=== PATIENT | male | born 1960 | race Caucasian/White ===

== ENCOUNTER 2020-02-03 21:36 | Outpatient (REF) | payer MEDICAID, SELFPAY ==
[2020-02-03 18:43] LABS: Crystals (BF) No Crystals seen
== END 2020-02-03 21:56 ==
LOC: NCHCN 21:36
PROVIDERS: Visit Provider Physician Assistant Medical
DX: Z13.89 Encounter for screening for other disorder (principal)
CPT/HCPCS: 87070; 87205; 89060

== ENCOUNTER 2020-02-08 05:47 | Outpatient (REF) | payer MEDICAID, SELFPAY ==
[2020-02-14 17:29] LABS: Lyme Ab w Rflx to Lyme Confirm Positive (Negative)
[2020-02-14 17:31] LABS: IgG Immunoblot Positive (Negative)
[2020-02-14 17:32] LABS: IgG Band(s) See Comments; IgM Immunoblot Positive (Negative)
[2020-02-14 17:33] LABS: IgM Band(s) See Comments
[2020-02-14 17:36] LABS: Immunoblot Interpretation See Comments
== END 2020-02-08 06:07 ==
LOC: NCHCN 05:47
PROVIDERS: PCP Physician Assistant; Visit Provider Physician Assistant
DX: M25.461 Effusion, right knee (principal)
CPT/HCPCS: 86617; 86618

== ENCOUNTER 2020-04-10 16:50 | Outpatient (REF) | payer MEDICAID, SELFPAY ==
[2020-04-10 14:18] LABS: Anion Gap 3.3 mmol/L (3-11); BUN 12 mg/dL (7-18); CO2 30.7 mmol/L (21.0-32.0); CREATININE 1.19 mg/dL (0.70-1.30); Calcium 9.5 mg/dL (8.5-10.1); Calculated LDL 141 mg/dL (<100); Chloride 104 mmol/L (98-107); Cholesterol 219 mg/dL (<200); Glucose 70 mg/dL (74-106); HDL Cholesterol 47 mg/dL (40-60); Potassium 4.7 mmol/L (3.5-5.1); Sodium 138 mmol/L (136-145); Triglyceride 155 mg/dL (<150)
== END 2020-04-10 17:10 ==
LOC: NCHCN 16:50
PROVIDERS: PCP Physician Assistant; Visit Provider Physician Assistant
DX: Z13.220 Encounter for screening for lipoid disorders (principal); Z13.228 Encounter for screening for other metabolic disorders; Z12.5 Encounter for screening for malignant neoplasm of prostate; Z00.00 Encounter for general adult medical examination without abnormal findings
CPT/HCPCS: 80048; 80061; 84153

== ENCOUNTER 2020-05-08 02:04 | Outpatient (CLI) | payer MEDICAID, SELFPAY ==
--- NOTE | 2020-05-08 11:22 | DI.RAD_ITS ---
EXAM: XR KNEE RT 3V AP,LAT,TONY CLINICAL HISTORY: RT KNEE PAIN, M25.561. TECHNIQUE: 2D digital imaging was performed. COMPARISON: No exams were available for comparison FINDINGS: There is no evidence of fracture although there is a subtle suggestion of a small joint effusion. No obvious degenerative changes nor significant osseous lesions. Incidentally noted is calcification p osteriorly in what appears to be the popliteal artery as well as some calcification noted in 1 of the rib calf runoff arteries. This indicates atherosclerotic involvement. Sign rib IMPRESSION: DATA REPOSITORY: RADIATION DOSE DELIVERED:
== END 2020-05-08 02:05 ==
LOC: DI 02:04
PROVIDERS: PCP Physician Assistant; Visit Provider Physician Assistant
DX: M25.561 Pain in right knee (principal); M25.461 Effusion, right knee
CPT/HCPCS: 73562

== ENCOUNTER 2020-07-12 02:56 | Outpatient (CLI) | payer MEDICAID, SELFPAY ==
--- NOTE | 2020-07-12 | DI.MRI_ITS ---
EXAM: MR LOWER JOINT RT WO CLINICAL HISTORY: RT KNEE JOINT PAIN, M25.561 TECHNIQUE: Multiplanar multisequence MRI of the knee was performed. COMPARISON: CR XR KNEE RT 3V AP,LAT,TONY from 05/08/2020 FINDINGS: EFFUSION: There is a prominent joint effusion. There is also a large Garcia cyst in the popliteal fos sa which measures 10 centimeter craniocaudal length and which is possibly ruptured given that there d oes appear to be some fluid in the subcutaneous tissues caudal to the Garcia cyst. AP measurement of the Garcia cyst is 1.6 cm and is approximately 2.6 cm wide. Also some debris evident within the Garcia cyst. MARROW:There is no evidence of fracture. There is focal subarticular edema in the lateral tibial navid teau which show is immediately subjacent to a small full-thickness abnormality in the overlying Highl and cartilage and this is consistent with an element of osteochondral defect. There is very mild ove rlying intraosseous edema in the lateral femoral condyle. No abnormal intraosseous signal in the opp osite-medial nor in the fibular head neck. PATELLOFEMORAL COMPARTMENT: The quadriceps tendon is intact. The patellar ligament is intact. There is an area of mild concave thinning of the retropatellar cartilage over the lateral facet, and there is also some focal signal abnormality in the opposing Downey cartilage over the anterior aspe ct of the lateral femoral condyle.There is no intraosseous signal to suggest recent patellar dislocat ion. There are no patellar retinacular tears. CRUCIATE LIGAMENTS: The anterior cruciate ligament is intact.The posterior cruciate ligament is intac t. MEDIAL COMPARTMENT/MEDIAL MENISCUS: There is a tear in the posterior horn of the medial meniscus. Th ere is an oblique tear seen on the sagittal images.Violates inferior articular surface. Also horizon symone signal abnormality extending to the level of the root but without true tear of the root. The ant erior horn does not appear torn. Mild extrusion.. There are no chondral defects, osteochondral defects, subarticular marrow edema, nor osteophytes evid ent. MEDIAL COLLATERAL LIGAMENT: Intact LATERAL COMPARTMENT/LATERAL MENISCUS: There is no evidence of lateral meniscal tear.There is a small chondral defect in the posterior aspect of the lateral tibial plateau which measures 3 millimeters wi de by 3 millimeters AP and which is accompanied by subjacent stir bright bone edema and what appears to be a small osteochondral defect at this level.There is no obvious loose intra-articular body no ot her degenerative changes nor osteophytes in the lateral compartment. ILIOTIBIAL BAND: Intact LATERAL COLLATERAL LIGAMENT COMPLEX: The fibular collateral ligament is intact. The biceps femoris t endon is intact.Mild tenosynovitis of the popliteus tendon sheath noted. However, the tendon is not torn. IMPRESSION: 1. There is tear of the posterior horn of the medial meniscus, as described above. No bucket-handle configuration. There are no tears of the lateral meniscus. 2. There is a deep focal (3 millimeters) chondral defect in the posterior aspect of the lateral tibia l plateau with focal subjacent marrow edema. 3. There are opposing chondral defects in the lateral aspect of the patellofemoral compartment. Ther e opposing foci of signal abnormality in the cartilage over the lateral facet of the patella and medhat cent-opposing cartilage over the anterior aspect of the lateral femoral condyle. 4. There is a large joint effusion and there is also a large Garcia cyst measuring 10 cm length and co ntaining debris. 5. The cruciate and collateral ligaments are intact. There is mild fluid within the popliteus tendon sheath component of the LCL complex but no high-grade tear of this structure DATA REPOSITORY:
== END 2020-07-12 03:16 ==
PROVIDERS: PCP Physician Assistant; Visit Provider Physician Assistant
DX: M25.561 Pain in right knee (principal); S83.241A Other tear of medial meniscus, current injury, right knee, initial encounter; M25.461 Effusion, right knee; M71.21 Synovial cyst of popliteal space [Baker], right knee
CPT/HCPCS: 73721

== ENCOUNTER → 2023-06-17 03:35 | Outpatient (CLI) | payer MEDICARE, SELFPAY ==
--- NOTE | 2023-06-17 14:02 | DI.US_ITS ---
Exam(s) US CAROTID EXAM: US CAROTID CLINICAL HISTORY: CAROLTID BRUIT,R09.89. TECHNIQUE: Ultrasound carotids performed using grayscale, color-flow, and spectral Doppler imaging. COMPARISON: No exams were available for comparison FINDINGS: CAROTID ARTERIES: On the right side there is significant calcified and noncalcified plaque at the level the carotid bul b and proximal right ICA with peak systolic velocity in the proximal right ICA measuring 133 cm/sec, consistent with moderate stenosis (50-69 percent). On the left side there is similar appearing calcified and noncalcified plaque, also with elevated brandy ocities, most prominent in the distal left ICA with peak systolic velocity 141 cm/sec, also consisten t with moderate stenosis (50-69 percent). VERTEBRAL ARTERIES: Antegrade flow is demonstrated in both vertebral arteries in the neck. Measurements: R Bulb: 102 cm/s PS / 19.3 cm/s ED R CCA: 100.7 cm/s PS / 15.4 cm/s ED R ECA: 107.5 cm/s PS / 10.8 cm/s ED R ICA Prox: 133.1 cm/s PS / 19.9 cm/s ED R ICA Mid: 90.5 cm/s PS / 19.8 cm/s ED R ICA Distal: 106.9 cm/s PS /28.8 cm/s ED R Vert: 69.8 cm/s PS / 7.5 cm/s ED R SVR: 1.3 R DVR: 1.3 L Bulb: 154 cm/s PS / 0 cm/s ED L CCA: 91.7 cm/s PS / 19.6 cm/s ED L ECA: 201.5 cm/s PS / 12.3 cm/s ED L ICA Prox: 100.2 cm/s PS / 27.2 cm/s ED L ICA Mid: 109.3 cm/s PS / 29 cm/s ED L ICA Distal: 141.3 cm/s PS / 37.9 cm/s ED L Vert: 53.7 cm/s PS / 17.5 cm/s ED L SVR: 1.45 L DVR: 0.75 IMPRESSION: Significant plaque at the level the carotid bulbs and proximal internal carotid arteries bilaterally both sides of the neck consistent with moderate stenosis of approximately 50-69 percent on both sides . Antegrade flow is demonstrated in both vertebral arteries in the neck. Criteria for Carotid Stenosis: Normal: ICA PSV <125 cm/s no plaque or intimal thickening is visible. <50% stenosis: ICA PSV <125 cm/s and plaque or intimal thickening is visible. 50-69% stenosis: ICA PSV is 125-250 cm/s and plaque is visible. >70% stenosis to near occlusion: ICA PSV >250 cm/s with visible plaque and luminal narrowing. DATA REPOSITORY:
== END ==
PROVIDERS: PCP Physician Assistant; Visit Provider Physician Assistant
DX: R09.89 Other specified symptoms and signs involving the circulatory and respiratory systems (principal); I65.23 Occlusion and stenosis of bilateral carotid arteries
CPT/HCPCS: 93880

== ENCOUNTER 2023-06-24 14:35 | Outpatient (REF) | payer MEDICARE, SELFPAY | END 2023-06-24 14:36 | disposition home or self-care (01) | LOC: NCHCN 14:35 | PROVIDERS: PCP Physician Assistant; Visit Provider Physician Assistant | DX: R10.32 Left lower quadrant pain (principal) | CPT/HCPCS: 87086 ==

== ENCOUNTER → 2023-06-30 04:40 | Outpatient (CLI) | payer MEDICARE, SELFPAY ==
--- NOTE | 2023-06-30 | DI.MRI_ITS ---
Exam(s) MR BRAIN WO EXAM: MR BRAIN WO CLINICAL HISTORY: HEADACHE, R51.9 TECHNIQUE: Multiplanar multisequence MRI of the brain was performed. COMPARISON: No exams were available for comparison FINDINGS: VENTRICLES AND EXTRA AXIAL SPACES: Normal in size and morphology for the patient's age. MIDLINE SHIFT: None. CEREBRAL PARENCHYMA: No focus of restricted diffusion to suggest acute infarct. No space-occupying le nilesh identified. HEMORRHAGE: None. BRAINSTEM/CEREBELLUM: Normal. CALVARIUM: Normal. VISUALIZED PARANASAL SINUSES/MASTOIDS:There is opacification of some of the left mastoid air cells. The remaining visualized paranasal sinuses are clear. [facility]: Normal flow void. PITUITARY GLAND: Unremarkable. OTHER FINDINGS: None. IMPRESSION: 1. Unremarkable MRI of the brain. 2. Mild left mastoiditis. DATA REPOSITORY:
== END ==
PROVIDERS: PCP Physician Assistant; Visit Provider Physician Assistant
DX: R51.9 Headache, unspecified (principal); H70.92 Unspecified mastoiditis, left ear
CPT/HCPCS: 70551

== ENCOUNTER → 2023-07-04 01:20 | Outpatient (CLI) | payer MEDICARE, SELFPAY ==
--- NOTE | 2023-07-04 | DI.CTLCSR_ITS ---
Exam(s) CT CHEST LUNG CANCER SCREEN EXAM: CT CHEST LUNG CANCER SCREEN CLINICAL HISTORY: NICOTINE DEPENDENCE, F17.210, SCREENING FOR LUNG CA, CURRENT SMOKER TECHNIQUE: Imaging Protocol: Axial computed tomography images with coronal and sagittal reformatted images were created and reviewed. Low dose screening protocol. COMPARISON: No exams were available for comparison FINDINGS: Tracheobronchial tree: No bronchiectasis or mucus plugging. Mediastinum and Dalia: No dominant adenopathy or fluid collection. Pulmonary parenchyma: No consolidation or dominant measurable mass. Centrilobular and paraseptal emph ysematous changes, greater at the lobes. Lung Nodules: Calcified granulomata. Pleura: No effusion. No pneumothorax. Heart: The heart is not dilated. Moderate to severe coronary artery calcifications are seen. Aorta: Thoracic aorta non-dilated. Mild atherosclerotic changes. Upper abdomen: Unremarkable. Bones: Unremarkable for age. Soft Tissues: Unremarkable. IMPRESSION: No suspicious pulmonary nodules. Lung RADS Cat 1 - Negative: No nodules and definitely benign nodules Lung-RADS 1.0 CATEGORIES: Category 0 - Prior chest CT exam(s) being located for comparison. Category 1 - Annual screening in 12 months. No nodules or definitely benign nodules. Category 2 - Annual screening in 12 months. Benign appearance. Nodules with low likelihood of becomin g active cancer. Category 3 - 6-month follow-up. Probably benign. Short-term follow-up suggested. Nodules with low lik elihood of becoming active cancer. Category 4A - 3-month follow-up and CT/PET if >8 mm in size. Suspicious finding. Findings which requi re additional testing. Category 4B - Findings which require additional testing and tissue sampling. Category 4X - Category 3 or 4 nodules with additional features or imaging findings that increases the suspicion of malignancy. Modifier S- Potentially clinically significant findings (non lung cancer) RADIATION DOSE DELIVERED: 94.97mGy.cm Total DLP DATA REPOSITORY: All CT scans at this facility are submitted to the National Radiology Data Registry (NRDR) Dose Index Registry (DIR) with the [employer] (ACR). RADIATION OPTIMIZATION: All CT scans at this facility use at least one of these dose optimization te chniques: automated exposure control; mA and/or kV adjustment per patient size (includes targeted exa ms where dose is matched to clinical indication); or iterative reconstruction.
--- NOTE | 2023-07-04 07:30 | DI.US_ITS ---
APPROVED REPORT EXAM: Comprehensive 2D, Doppler, and color-flow Echocardiogram Patient Location: Out-Patient [employer] Manager: Lisette Yuan RDCS ([place]) Indications: Cardiac heart murmur Other Information Study Quality: Adequate Conclusion Normal left ventricular wall thickness and chamber size. EF is 55-6o%. Wall motion is normal Normal right ventricular size and function Both atria are normal in size There is no structural or hemodynamically significant valvular disease Wall motion Left Ventricle The left ventricle is normal size. The left ventricular systolic function is normal. The left ventric ular ejection fraction is within the normal range. There is normal left ventricular wall thickness. T here is normal LV segmental wall motion. There is no ventricular septal defect visualized. LVEF is 56 %. Right Ventricle The right ventricle is normal size. The right ventricular systolic function is normal. Atria The left atrium size is normal. The right atrium size is normal. The interatrial septum is intact wit h no evidence for an atrial septal defect. Aortic Valve The aortic valve is normal in structure. Aortic valve is trileaflet. There is no aortic valvular sten osis. No aortic regurgitation is present. Mitral Valve The mitral valve is normal in structure. No evidence of mitral valve stenosis. Trace mitral regurgita tion. Tricuspid Valve The tricuspid valve is normal in structure. There is no tricuspid valve stenosis. Trace to mild tri cuspid regurgitation. Pulmonic Valve The pulmonary valve is normal in structure. There is no pulmonic valvular stenosis. Trace pulmonic re gurgitation. Great Vessels The aortic root is normal in size. Ascending aorta is not well visualized. Aortic arch is not well vi sualized. IVC is normal in size and collapses >50% with inspiration. Pericardium There is no pericardial effusion. 2D Dimensions IVSD d PLAX 0.77 cm M: 0.6-1.2 Ao Root d 3.12 cm M: 3.1 - 3.7 LVPW d PLAX 0.79 cm M: 0.6 - 1.2 LVID d PLAX 4.72 cm M: 4.2 - 5.8 LVDs 3.26 cm M: 2.5 - 4.0 LV EF Teichholz 58.6 % FS 30.97 % LV EDV (Teich) 103.5 mL LV ESV (Teich) 42.8 mL M-Mode TAPSE 1.96 cm (M/F) >1.7 Auto EF LV EDV A4C 131.3 mL LV EDV A2C 145.7 mL LV EDV BP 137.9 mL LV ESV A4C 58.8 mL LV ESV A2C 63.0 mL LV ESV BP 60.4 mL LVEF(%) A4C 55.2 % LVEF(%) A2C 56.8 % LVEF(%) BP 56.2 % LV SV A4C 72.5 ml LV SV A2C 82.7 ml LV SV BP 77.5 ml LV CO A4C 3.6 L/min LV CO A2C 4.4 L/min LV CO BP 4.0 L/min HR A4C 49.45 BPM HR A2C 53.58 BPM LV EDV Index (BP) LA Volume LA Length A4C 5.2 cm LA Length A2C 5.2 cm LA Area A4C s 17.17 cm2 LA Area A2C s 16.13 cm2 LA Vol A4C A-L 47.95 mL LA Vol A2C A-L 42.59 mL LA Vol Biplane A-L 45.3 mL LA Vol/BSA A4C A-L LA Vol/BSA A2C A-L LA Vol/BSA BP A-L 21.5 mL/m2 LA Vol A4C MOD 45.8 mL LA Vol A2C MOD 37.2 mL LA Vol BP MOD 41.2 mL RA Volume RA Area A4C 9.2 cm2 RA ESV A4C (A-L) 18.2mL RA Vol/BSA A4C A-L RA Length A4C 3.9 cm RA ESV A4C (MOD) 17.1mL LV Diastology MV E' medial 0.103 (>0.07 m/s) MV E Vmax 0.99 (0.4-1.3 m/s) MV E/E' MED 9.65 (<14) MV A Vmax 0.60 (0.4-1.3 m/s) MV E' lateral 0.116 (>0.1 m/s) E/A Ratio 1.6 MV E/E' LAT 8.57 (<14) MV E' Average 0.109 m/s MV E/E'(average) 9.08 Aortic Valve AoV Vmax 1.15 m/s LVOT Vmax 0.92 m/s AoV Peak Grad 5.3 mmHg LVOT Peak Grad 3.4 mmHg AoV Area (Vmax) 2.72 cm2 LVOT VTI 0.248 m AoV VTI 0.312 m LVOT Mean Grad 1.9 mmHg AoV Mean Brian. 0.82 m/s LVOT SV 83.74 mL AoV Mean Grad 3.1 mmHg LVOT Diam s 2.05 cm AoV Area (VTI) 2.68 cm2 Velocity Ratio 0.80 Mitral Valve MV DT 210 (160-240 msec) MV Vmax TIPS 0.88 m/s MV Mean Grad 1.2 (<2mmHg) MV VTI 0.360 m Pulmonary Valve PV Vmax 0.81 (0.5-1.5 m/s) RVOT Vmax 0.57 m/s PV Peak Grad 2.6 mmHg RVOT Peak Gr. 1.3 mmHg PV Mean Brian 0.57 m/s RVOT VTI 0.131 m PV Mean Grad 1.4 mmHg RVOT Mean Gr. 0.8 mmHg Tricuspid Valve RA Pressure 3.00 mmHg TR Vmax 2.16 m/s TV S' 0.16 m/s TR Peak Grad 18.6 mmHg RVSP (TR) 21.6 mmHg
== END ==
PROVIDERS: PCP Physician Assistant; Visit Provider Physician Assistant
DX: F17.210 Nicotine dependence, cigarettes, uncomplicated; Z12.2 Encounter for screening for malignant neoplasm of respiratory organs; R01.1 Cardiac murmur, unspecified
CPT/HCPCS: 71271; 93306